=== PATIENT | female | born 1995 | race Caucasian/White ===

== ENCOUNTER 2019-03-25 12:40 | Outpatient (CLI) | payer MEDICARE, MEDICAID ==
[~2019-03-25] VITALS: Ht 157 cm; Wt 61.3 kg
[~2019-03-25 12:40] MED LIST: LACO10SO GT; LACO10SO PEG; MONT10TA21 GT; MONT10TA24 PEG
== END 2019-03-25 12:53 | disposition home or self-care (01) ==
LOC: PREOP 12:40
PROVIDERS: ATTEND Dentist Pediatric Dentistry
DX: Z01.818 Encounter for other preprocedural examination (principal)